=== PATIENT | female | born 1935 | race Caucasian/White ===

== ENCOUNTER 2025-01-28 14:42 | Outpatient (OUT) | payer MEDICARE, MEDICAID, SELFPAY ==
--- OUTSIDE RECORDS SUMMARY | 2025-01-28 14:45 | XMS_ITS | Clinical Summary ---
Author Organization [facility] Address [address] [place] [address] Care Team Providers Care Small Animal Caretaker Name Role Phone Gorge Lu MD Primary Care Provider [phone] Marcella Harrington RN Unavailable [phone] Allergies No known active allergies Medications aspirin (ASPIR) 81 MG EC tablet Take 1 tablet by mouth 1 (one) time each day. Active denosumab (Prolia) 60 MG/ML solution prefilled syringe Inject 60 mg under the skin. Every 6 months Active latanoprost (Xalatan) 0.005 % ophthalmic solution INSTILL 1 DROP INTO BOTH EYES EVERY EVENING DIRECTED 3 Active ferrous sulfate 325 (65 Fe) MG tabletIndication s:Muscle weakness Take 1 tablet (325 mg) by mouth in the morning and 1 tablet (325 mg) in the evening. Take with meals. 90 tablet 2 4 Active glipiZIDE (Glucotrol) 5 MG tabletIndication s:Type 2 diabetes mellitus without complication, without long-term current use of insulin (HCC) TAKE 1 TABLET (5 MG) BY MOUTH IN THE MORNING AND 1 TABLET (5 MG) IN THE EVENING. TAKE BEFORE MEALS. 180 tablet 3 5 Active FLUoxetine (PROzac) 20 MG capsuleIndicatio ns:Decreased estrogen level TAKE 1 CAPSULE (20 MG) BY MOUTH IN THE MORNING 90 capsule 4 5 Active dapagliflozin (Farxiga) 5 MGIndications:Ty pe 2 diabetes mellitus with chronic kidney disease, without long-term current use of insulin, unspecified CKD stage (HCC) Take 1 tablet (5 mg) by mouth Daily 30 tablet 11 5 026 Active Misc. Devices (Rollator Ultra-Light) miscIndications: Atrophy of muscle of multiple sites,Frailty,At axia 1 Units continuously 1 each 5 Active amLODIPine (Norvasc) 5 MG tabletIndication s:Essential hypertension TAKE 1 TABLET BY MOUTH EVERY DAY 100 tablet 3 5 Active hydrALAZINE (Apresoline) 25 MG tabletIndication s:Essential hypertension Take 1 tablet (25 mg) by mouth in the morning and 1 tablet (25 mg) in the evening and 1 tablet (25 mg) before bedtime. 270 tablet 3 5 Active Alcohol Swabs 70 % padsIndications: Type 2 diabetes mellitus with chronic kidney disease, without long-term current use of insulin, unspecified CKD stage (HCC) 1 Pad Daily To cleanse finger prior to finger stick to check blood sugar 100 each 3 5 026 Active furosemide (Lasix) 20 MG tabletIndication s:Chronic diastolic congestive heart failure (HCC) TAKE 1 TABLET (20 MG) BY MOUTH EVERY DAY NEEDED FOR EDEMA 90 tablet 1 5 Active Blood Glucose Monitoring Suppl (Blood Glucose Monitor System) w/Device kitIndications:T ype 2 diabetes mellitus with chronic kidney disease, without long-term current use of insulin, unspecified CKD stage (HCC) Use daily or as directed for monitoring of diabetes. Glucometer covered by insurance 1 kit 5 026 Active Glucose Blood (Blood Glucose Test Strips 333) stripIndications :Type 2 diabetes mellitus with chronic kidney disease, without long-term current use of insulin, unspecified CKD stage (HCC) 1 strip by In Vitro route Daily Test strips that insurance will cover 100 strip 3 5 026 Active Active Problems Problem Noted Date Diagnosed Date Iron deficiency anemia secon hailey to inadequate dietary iron intake 09/11/2023 Moderate protein-calorie malnutrition (HHS-HCC) 03/29/2023 Atrophy of muscle of multiple sites 03/29/2023 Muscle weakness 03/29/2023 Body mass index (BMI) 19.9 or less, adult 2022 Chronic systolic congestive heart failure 2022 Decreased estrogen level 12/13/2022 Essential hypertension 12/13/2022 Irregular heart rhythm 12/13/2022 Frailty 12/13/2022 Left atrial enlargement 12/13/2022 Nonrheumatic mitral valve regurgitation 12/14/19 23 Osteoporosis 12/13/2022 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/2022 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 12/13/2022 Resolved Problems Problem Noted Date Diagnosed Date Resolved Date Pneumonia of both lungs due to infectious organism 08/16/2023 01/18/2024 Encounters Date Type Department Care Team Description 01/08/2025 Patient Outreach [facility] [address] [place] [address] Marcella Harrington, ALEXEY 01/03/2025 Telephone [address] [address] [place] [address] Gorge Lu MD 12/31/2024 3:00 PM EDT Procedure Visit [facility] [address] [place] [address] Shemar Saucedo DPM Onychomycosis (Primary Dx); Onychodystrophy; Diabetic polyneuropathy associated with type 2 diabetes mellitus (HCC); Ulcer of right foot with fat layer exposed (HCC); Ulcer of left foot with fat layer exposed (HCC) 12/31/2024 Bamboo flowsheet [facility] [address] [place] [address] Shemar Saucedo DPM 12/31/2024 Travel 12/30/2024 Travel 12/12/2024 Refill [facility] [address] [place] [address] Gorge Lu MD Type 2 diabetes mellitus with chronic kidney disease, without long-term current use of insulin, unspecified CKD stage (HCC) 12/06/2024 Patient Outreach [facility] [address] [place] [address] Marcella Harrington RN 11/07/2024 Patient Outreach [facility] [address] [place] [address] Marcella Harrington RN 11/05/2024 Refill [facility] [place] [facility] [address] [facility] [address] [place] [address] Gorge Lu MD Chronic diastolic congestive heart failure (HCC) 11/04/2024 4:00 PM EDT Office Visit [facility] [place] [facility] 112 [facility] [address] [place] [id number] Gorge Lu MD Age-related osteoporosis without current pathological fracture (Primary Dx); Chronic systolic congestive heart failure (HCC) 11/04/2024 Bamboo flowsheet [facility] [place] [facility] [address] [facility] [address] [place] [address] Gorge Lu MD 11/04/2024 Travel from Last 3 Months Immunizations Immunization Administration Dates Next Due Influenza, High Dose Seasona l, Preservative Free 03/06/2019,03/29/2018,03/14/2018,02/22 Influenza, injectable, quadrivalent 03/01/2016 Influenza, injectable, quadr ivalent, preservative free 02/27/2023,02/28/2022,03/01/2021,02/25,04/03/2015 Influenza, seasonal, injecta ble, preservative free 03/04/2024,04/30/2014 Influenza, seasonal, intrade rmal, preservative free 02/26/2013 Pneumococcal Polysaccharide PPSV23 02/26/2013 Pneumococcal conjugate vacci ne, 21 valent (PCV21), polysaccharide ERX181 conjugate, preservative free 10/09/2024 Pneumococcal, Unspecified 10/16/2024 Tdap 10/09/2024 Zoster, Recombinant 10/09/2024 Family History Medical History Relation Name Comments Heart disease Father Hypertension Father Ovarian cancer Mother Relation Name Status Comments Father Mother Social History Tobacco Use Types Packs/Day Years Used Date Smoking Tobacco: Never Smokeless Tobacco: Never Tobacco Cessation:Counseling Given: Not Answered Alcohol Use Standard Drinks/Week Comments Never 0 (1 standard drink = 0.6 oz pur e alcohol) B1300 Health Literacy Answer Date Recor ded How often do you need to hav e someone help you when you read instructions, pamphlets, or other written material from your doctor or pharmacy? Never 09/09/2024 Humiliation, Afraid, Rape, and Kick questionnair e Answer Date Recorded Within the last year, have y ou been afraid of your partner or ex-partner? No 09/09/2024 Within the last year, have y ou been humiliated or emotionally abused in other ways by your partner or ex-partner? No Within the last year, have y ou been kicked, hit, slapped, or otherwise physically hurt by your partner or ex-partner? No 09/09/2024 Within the last year, have y ou been raped or forced to have any kind of sexual activity by your partner or ex-partner? No 09/09/2024 Social Connection and Isolation Panel [NHANES] A nswer Date Recorded In a typical week, how many times do you talk on the phone with family, friends, or neighbors? Once a week 09/09/2024 How often do you get togethe r with friends or relatives? Three times a week 09/09/2024 How often do you attend chur ch or uatsdin services? Never 09/09/2024 Do you belong to any clubs o r organizations such as hoahaoism groups, unions, fraternal or athletic groups, or school groups? No 09/09/2024 How often do you attend meet ings of the clubs or organizations you belong to? Never 09/09/2024 Are you , , di vorced, , never , or living with a partner? 09/09/2024 AUDIT-C Answer Date Recorded Q1: How often do you have a drink containing alcohol? Never 09/09/2024 Q2: How many drinks containi ng alcohol do you have on a typical day when you are drinking? Patient does not drink Q3: How often do you have si x or more drinks on one occasion? Never 09/09/2024 Overall Financial Resource Strain (CARDIA) Answe r Date Recorded How hard is it for you to pa y for the very basics like food, housing, medical care, and heating? Not hard at all 09/09/2024 PHQ-2 Answer Date Recorded Patient Health Questionnaire-2 Score 0 08/19/2024 [place] [facility] - Occupational Stress Questionnaire Answer Date Recorded Do you feel stress - tense, restless, nervous, or anxious, or unable to sleep at night because your mind is troubled all the time - these days? Not at all 09/09/2024 Exercise Vital Sign Answer Date Recorde d On average, how many days pe r week do you engage in moderate to strenuous exercise (like a brisk walk)? 0 days 09/09/2024 On average, how many minutes do you engage in exercise at this level? 0 min 09/09/2024 Hunger Vital Sign Answer Date Recorded Within the past 12 months, y ou worried that your food would run out before you got the money to buy more. Never true 09/10/19 25 Within the past 12 months, t he food you bought just didn't last and you didn't have money to get more. Never true 09/09/2024 PRAPARE - Transportation Answer Date Re corded In the past 12 months, has l ack of transportation kept you from medical appointments or from getting medications? No 08/27 In the past 12 months, has l ack of transportation kept you from meetings, work, or from getting things needed for daily living? No 09/09/2024 Housing Stability Vital Sign Answer Mahendra e Recorded In the last 12 months, was t here a time when you were not able to pay the mortgage or rent on time? No 08/23/2023 In the last 12 months, how many places have you lived? 1 08/23/2023 In the last 12 months, was t here a time when you did not have a steady place to sleep or slept in a skilled nursing (including now)? No 08/23/2023 Housing Stability Vital Sign Answer Mahendra e Recorded In the last 12 months, was t here a time when you were not able to pay the mortgage or rent on time? No 09/09/2024 In the past 12 months, how m any times have you moved where you were living? 0 09/09/2024 At any time in the past 12 m [facility], were you homeless or living in a skilled nursing (including now)? No 09/09/2024 Comments Unknown Sex and Gender Information Value Date Recorded Sex Assigned at Not on file Legal Sex Female 7:22 PM EDT Gender Identity Not on file Sexual Orientation Not on file Last Filed Vital Signs Vital Sign Reading Time Taken Comments Blood Pressure 128/62 11/04/2024 4:02 PM EDT Pulse 66 11/04/2024 4:02 PM EDT Temperature 36.4 C (97.5 F) 11/13/2023 3:05 PM EDT Respiratory Rate 16 11/04/2024 4:02 PM EDT Oxygen Saturation 96% 11/04/2024 4:02 PM EDT Inhaled Oxygen Concentration - - Weight 52.2 kg (115 lb) 12/31/2024 2:59 PM EDT Height 170.2 cm (5' 7 ) 12/31/2024 2:59 PM EDT Body Mass Index 18.01 12/31/2024 2:59 PM EDT Plan of Treatment Upcoming Encounters Date Type Department Care Team (Late st Contact Info) Description 02/17/2025 2:30 PM EDT Office Visit [facility] [address] [facility] [address] [place] [address] Gorge Lu MD 112 [facility] 110 [place] [address] 05/05/2025 3:15 PM EST Procedure Visit [facility] [address] [place] [phone] Shemar Saucedo, DPAshley [address] [place], [place] [id number] Health Maintenance Due Date Last Done Comments Diabetes: Urine Protein Screening 08/21/2018 018 Diabetes: Hemoglobin A1C 01/14/2025 025, 08/19/2024, 07/08/2024, Additional history exists Influenza Vaccine (#1) 2025 4, 02/27/2023, 02/28/2022, Additional history exists Diabetes: Retinopathy Screening 05/30/2025 4, 06/13/2017 Pneumococcal Vaccine: 65+ Ye ars (2 of 2 - PCV) 10/16/2025 10/16/2024, 02/26/2013 Procedures Procedure Name Priority Date/Time Associated Diagnosis Comments POCT GLYCATED HEMOGLOBIN, TOTAL Routine 10/14/2024 3:52 PM EDT Type 2 diabetes mellitus with chronic kidney disease, without long-term current use of insulin, unspecified CKD stage (HCC) DIABETIC RETINOPATHY SCREENING - OU - BOTH EYES Routine 05/30/2023 2:24 PM EST MICROALBUMIN / CREATININE URINE RATIO Routine 08/21/2017 from Last 3 Months or Most Recently Relevant to Health Maintenance Results * POCT Glycated hemoglobin, total (10/14/2024 3:52 PM EDT) Hemoglobin A1C 7.8 Blood 10/14/2024 3:52 PM EDT us Gorge Lu MD POINT OF CARE TEST ENTER/EDIT ORDERABLES Final Result * Diabetic Retinopathy Screening - OU - Both Eyes (05/30/2023 2:24 PM EST) Anatomical Region Laterality Modality Head Other us Gorge Lu MD OPHTH PHOTOGRAPHY Final Result * (ABNORMAL) Microalbumin / creatinine urine ratio (08/21/2017) 2176 143 20 - 320 [facility] 3779 5.4 NOT ESTABLISHED [facility] 4064 37.8(H) 0.0 - 29.9 [facility] Comment: THE ADA (DIABETES CARE 26:S94-S98, 2003) DEFINES ABNORMALITIES IN ALBUMIN EXCRETION FOLLOWS: CATEGORY RESULT (MCG/MG CREATININE) -------- NORMAL <30 MICROALBUMINURIA 30 - 299 CLINICAL ALBUMINURIA > OR = 300 THE ADA RECOMMENDS THAT AT LEAST TWO OF THREE SPECIMENS COLLECTED WITHIN A 3-6 MONTH PERIOD BE ABNORMAL BEFORE CONSIDERING A PATIENT TO BE WITHIN A DIAGNOSTICS CATEGORY. 08/21/2017 us Gorge Lu MD LAB URINE ORDERABLES Final Res ult [facility] from Last 3 Months or Most Recently Relevant to Health Maintenance [place] [employer] MEDIC[place]VANTAGE Care Teams Small Animal Caretaker Relationship Specialty Start Date End Date Gorge Lu MD [address] [place] [address] [place] [address] PCP - General Internal Medicine 12/14/22 Marcella Harrington, ALEXEY [address] [place] [address] [place] [address] Registered Nurse Family Medicine 08/23/23
--- OUTSIDE RECORDS SUMMARY | 2025-01-28 14:45 | XMS_ITS | Encounter Summary ---
Author Organization [facility] Address [address] [facility] [place] [address] Care Team Providers Care Mild Disabilities Teacher Name Role Phone Gorge Lu MD Primary Care Provider [phone] Marcella Harrington RN Unavailable [phone] Gorge Lu MD Unavailable [phone] Gorge Lu MD Unavailable [phone] Encounter Details Date Type Department Care Team ([facility] st Contact Info) Description 09/12/2023 Abstract [facility] [place] [facility] [address] [facility] 110 [place] [phone] Gorge Lu MD 112 [facility] 110 [place] [address] Social History Tobacco Use Types Packs/Day Years Used Date Smoking Tobacco: Never Smokeless Tobacco: Never Alcohol Use Standard Drinks/Week Comments Never 0 (1 standard drink = 0.6 oz pur e alcohol) Humiliation, Afraid, Rape, and Kick questionnair e Answer Date Recorded Within the last year, have y ou been afraid of your partner or ex-partner? No 08/23/2023 Within the last year, have y ou been humiliated or emotionally abused in other ways by your partner or ex-partner? No Within the last year, have y ou been kicked, hit, slapped, or otherwise physically hurt by your partner or ex-partner? No 08/23/2023 Within the last year, have y ou been raped or forced to have any kind of sexual activity by your partner or ex-partner? No 08/23/2023 Social Connection and Isolat ion Panel [NHANES] Answer Date Recorded In a typical week, how many times do you talk on the phone with family, friends, or neighbors? More than three times a week 08/23/2023 How often do you get togethe r with friends or relatives? Three times a week 08/23/2023 How often do you attend chur ch or spiritism services? Never 08/23/2023 Do you belong to any clubs o r organizations such as gnosticism groups, unions, fraternal or athletic groups, or school groups? No 08/23/2023 How often do you attend meet ings of the clubs or organizations you belong to? Never 08/23/2023 Are you , , di vorced, , never , or living with a partner? 08/23/2023 AUDIT-C Answer Date Recorded Q1: How often do you have a drink containing alcohol? Never 08/23/2023 Q2: How many drinks containi ng alcohol do you have on a typical day when you are drinking? Patient does not drink Q3: How often do you have si x or more drinks on one occasion? Never 08/23/2023 Overall Financial Resource Strain (CARDIA) Answe r Date Recorded How hard is it for you to pa y for the very basics like food, housing, medical care, and heating? Not hard at all 08/23/2023 PHQ-2 Answer Date Recorded Patient Health Questionnaire-2 Score 0 01/09/2023 [facility] - Occupational Stress Questionnaire Answer Date Recorded Do you feel stress - tense, restless, nervous, or anxious, or unable to sleep at night because your mind is troubled all the time - these days? Not at all 08/23/2023 Exercise Vital Sign Answer Date Recorde d On average, how many days pe r week do you engage in moderate to strenuous exercise (like a brisk walk)? 0 days 08/23/2023 On average, how many minutes do you engage in exercise at this level? 0 min 08/23/2023 Hunger Vital Sign Answer Date Recorded Within the past 12 months, y ou worried that your food would run out before you got the money to buy more. Never true 08/23/19 24 Within the past 12 months, t he food you bought just didn't last and you didn't have money to get more. Never true 08/23/2023 PRAPARE - Transportation Answer Date Re corded In the past 12 months, has l ack of transportation kept you from medical appointments or from getting medications? No 07/28 In the past 12 months, has l ack of transportation kept you from meetings, work, or from getting things needed for daily living? No 08/23/2023 Housing Stability Vital Sign Answer [...] place to sleep or slept in a correction (including now)? No 08/23/2023 Comments Unknown Sex and Gender Information Value Date Recorded Sex Assigned at Not on file Legal Sex Female 7:22 PM EDT Gender Identity Not on file Sexual Orientation Not on file documented as of this encounter Plan of Treatment Upcoming Encounters Date Type Department Care Team (Late st Contact Info) Description 02/17/2025 2:30 PM EDT Office Visit [facility] Rodriguez [address] [facility] [address] [place] [address] Gorge Lu MD [address] [facility] [address] [place] [address] 05/05/2025 3:15 PM EST Procedure Visit [facility] [address] [place] [phone] Shemar Saucedo DPM [address] [place] [address] documented as of this encounter Visit Diagnoses Not on filedocumented in this encounter Additional Health Concerns Assessment Noted Time A fall risk assessment has been complete d for the patient 08/23/2023 10:31 AM EDT documented as of this encounter Care Teams Mild Disabilities Teacher Relationship Specialty Start Date End Date Gorge Lu MD [address] [facility] [address] [place] [address] PCP - General Internal Medicine 12/14/22 Gorge Lu MD [address] [place] [address] [place] [address] PCP - ACO Reach 09/27/23 07/04/24 Gorge Lu MD [address] [place] [address] [place] [address] PCP - ACO Reach 07/12/24 08/29/24 Marcella Harrington, RN [address] [facility] [address] [place] [address] Registered Nurse Family Medicine 08/23/23 documented as of this encounter
--- OUTSIDE RECORDS SUMMARY | 2025-01-28 14:45 | XMS_ITS | Encounter Summary ---
Author Organization [facility] Address [address] [facility] [place] [address] Care Team Providers Care Web Production Designer Name Role Phone Gorge Lu MD Primary Care Provider [phone] Marcella Harrington RN Unavailable [phone] Gorge Lu MD Unavailable [phone] Gorge Lu MD Unavailable [phone] Encounter Details Date Type Department Care Team ([facility] st Contact Info) Description 09/12/2023 Abstract [facility] [place] [facility] 112 [facility] 110 [place] [phone] Gorge Lu MD 112 [facility] 110 [place] [address] Social History Tobacco Use Types Packs/Day Years [...] often do you attend chur ch or restoration services? Never 08/23/2023 Do you belong to any clubs o r organizations such as temple groups, unions, fraternal or athletic groups, or [...] Recorded Patient Health Questionnaire-2 Score 0 01/09/2023 [facility] - Occupational Stress Questionnaire Answer Date Recorded [...] place to sleep or slept in a [place] health care facility (including now)? No 08/23/2023 Comments Unknown Sex [...] Office Visit [facility] Rodriguez [address] [facility] [address] [place] [address] Gorge Lu MD [address] [facility] [address] [place] [address] 05/05/2025 3:15 PM EST Procedure Visit [facility] [address] [place] [phone] Shemar Saucedo DPM [address] [place] [address] documented as of this encounter Visit Diagnoses Not on filedocumented in this encounter Additional Health Concerns Assessment Noted Time A fall risk assessment has been complete d for the patient 08/23/2023 10:31 AM EDT documented as of this encounter Care Teams Web Production Designer Relationship Specialty Start Date End Date Gorge Lu MD [address] [facility] [address] [place] [address] PCP - General Internal Medicine 12/14/22 Gorge Lu MD [address] [place] [address] [place] [address] PCP - ACO Reach 09/27/23 07/04/24 Gorge Lu MD [address] [place] [address] [place] [address] PCP - ACO Reach 07/12/24 08/29/24 Marcella Harrington, RN [address] [facility] [address] [place] [address] Registered Nurse Family Medicine 08/23/23 documented as of this encounter
--- OUTSIDE RECORDS SUMMARY | 2025-01-28 14:45 | XMS_ITS | Encounter Summary ---
Author Organization [facility] Address [address] [facility] [place] [address] Care Team Providers Care Drapery Cutter Machine Name Role Phone Gorge Lu MD Primary Care Provider [phone] Marcella Harrington RN Unavailable [phone] Gorge Lu MD Unavailable [phone] Gorge Lu MD Unavailable [phone] Encounter Details Date Type Department Care Team ([facility] st Contact Info) Description 09/01/2023 Abstract [facility] [place] [facility] [address] [facility] 110 [place] [address] Gorge Lu MD 112 [facility] 110 [place] [address] Social History Tobacco Use Types Packs/Day Years [...] often do you attend chur ch or hindu services? Never 08/23/2023 Do you belong to any clubs o r organizations such as presybeterian groups, unions, fraternal or athletic groups, or [...] Recorded Patient Health Questionnaire-2 Score 0 01/09/2023 [facility] - Occupational Stress Questionnaire Answer Date Recorded [...] place to sleep or slept in a alf (including now)? No 08/23/2023 Comments Unknown Sex [...] Office Visit BEBETO Rodriguez [address] [facility] 110 [place] [address] Gorge Lu MD [address] [facility] 110 [place] [address] 05/05/2025 3:15 PM EST Procedure Visit [facility] [address] [place] [address] Shemar Saucedo DPM [address] [place] [address] documented as of this encounter Visit Diagnoses Not on filedocumented in this encounter Additional Health Concerns Assessment Noted Time A fall risk assessment has been complete d for the patient 08/23/2023 10:31 AM EDT documented as of this encounter Care Teams Drapery Cutter Machine Relationship Specialty Start Date End Date Gorge Lu MD [address] [facility] [address] [place] [address] PCP - General Internal Medicine 12/14/22 Gorge Lu MD [address] [place] [address] [place] [address] PCP - ACO Reach 09/27/23 07/04/24 Gorge Lu MD [address] [place] [address] [place] [address] PCP - ACO Reach 07/12/24 08/29/24 Marcella Harrington, RN [address] [facility] 230 [place] [address] Registered Nurse Family Medicine 08/23/23 documented as of this encounter
--- OUTSIDE RECORDS SUMMARY | 2025-01-28 14:45 | XMS_ITS | Encounter Summary ---
Author Organization [facility] Address [address] [facility] [place] [address] Care Team Providers Care Equipment Maintenance Engineer Name Role Phone Gorge Lu MD Primary Care Provider [phone] Marcella Harrington RN Unavailable [phone] Gorge Lu MD Unavailable [phone] Gorge Lu MD Unavailable [phone] Encounter Details Date Type Department Care Team ([facility] st Contact Info) Description 09/22/2023 Abstract [facility] [place] [facility] 112 [facility] 110 [place] [address] Gorge Lu MD 112 [facility] 110 [place] [address] Social History Tobacco Use Types Packs/Day Years [...] often do you attend chur ch or buddhist services? Never 08/23/2023 Do you belong to any clubs o r organizations such as yazidi groups, unions, fraternal or athletic groups, or [...] Recorded Patient Health Questionnaire-2 Score 0 01/09/2023 [facility] - Occupational Stress Questionnaire Answer [...] place to sleep or slept in a group home (including now)? No 08/23/2023 Comments Unknown Sex [...] Office Visit BEBETO Rodriguez [address] [facility] 110 [place] [address] Gorge Lu MD [address] [facility] 110 [place] [address] 05/05/2025 3:15 PM EST Procedure Visit [facility] [address] [place] [address] Shemar Saucedo DPM [address] [place] [address] documented as of this encounter Visit Diagnoses Not on filedocumented in this encounter Additional Health Concerns Assessment Noted Time A fall risk assessment has been complete d for the patient 08/23/2023 10:31 AM EDT documented as of this encounter Care Teams Equipment Maintenance Engineer Relationship Specialty Start Date End Date Gorge Lu MD [address] [facility] [address] [place] [address] PCP - General Internal Medicine 12/14/22 Gorge Lu MD [address] [place] [address] [place] [address] PCP - ACO Reach 09/27/23 07/04/24 Gorge Lu MD [address] [place] [address] [place] [address] PCP - ACO Reach 07/12/24 08/29/24 Marcella Harrington, RN [address] [facility] 230 [place] [address] Registered Nurse Family Medicine 08/23/23 documented as of this encounter
--- OUTSIDE RECORDS SUMMARY | 2025-01-28 14:46 | XMS_ITS | Encounter Summary ---
Author Organization [facility] Address [address] [place] [facility] [place] [address] Care Team Providers Care Manager Of Software Name Role Phone Gorge Lu MD Primary Care Provider [phone] Gorge Lu MD Unavailable [phone] Marcella Harrington RN Unavailable [phone] Gorge Lu MD Unavailable [phone] Gorge Lu MD Unavailable [phone] Encounter Details Date Type Department Care Team (Late Contact Info) Description 01/29/2023 Abstract [facility] 1900 [place] [address] Ki Saucedo DPAshley 1900 [place], [place] [phone] Social History Tobacco Use Types Packs/Day Years Used Date Smoking Tobacco: Never Smokeless Tobacco: Never Alcohol Use Standard Drinks/Week Comments Never 0 (1 standard drink = 0.6 oz pur e alcohol) PHQ-2 Answer Date Recorded Patient Health Questionnaire-2 Score 0 01/09/2023 Comments Unknown Sex and Gender Information Value Date Recorded Sex Assigned at Not on file Legal Sex Female 7:22 PM EDT Gender Identity Not on file Sexual Orientation Not on file documented as of this encounter Plan of Treatment Upcoming Encounters Date Type Department Care Team ([facility] Contact Info) Description 02/17/2025 2:30 PM EDT Office Visit BEBETO Rodriguez [address] [place] [address] [place] [address] Gorge Lu MD [address] [facility] 110 [place], [place] [address] 05/05/2025 3:15 PM EST Procedure Visit [facility] [address] [place] [address] Shemar Saucedo, DPM [address] [place] [address] documented as of this encounter Visit Diagnoses Not on filedocumented in this encounter Care Teams Manager Of Software Relationship Specialty Start Date End Date Gorge Lu MD [address] [place] [address] [place] [address] PCP - General Internal Medicine 12/14/22 Gorge Lu MD [address] [place] [address] [place] [address] PCP - ACO Reach 11/07/22 07/27/23 Gorge Lu MD [address] [place] [address] [place] [address] PCP - ACO Reach 09/27/23 07/04/24 Gorge Lu MD [address] [place] [address] [place] [address] PCP - ACO Reach 07/12/24 08/29/24 Marcella Harrington, ALEXEY [address] [place] [address] [place] [address] Registered Nurse Family Medicine 08/23/23 documented as of this encounter
--- OUTSIDE RECORDS SUMMARY | 2025-01-28 14:46 | XMS_ITS | Encounter Summary ---
Author Organization [facility] Address [address] [facility] [place] [address] Care Team Providers Care Stuffer Name Role Phone Gorge Lu MD Primary Care Provider [phone] Marcella Harrington RN Unavailable [phone] Gorge Lu MD Unavailable [phone] Gorge Lu MD Unavailable [phone] Encounter Details Date Type Department Care Team ([facility] st Contact Info) Description 09/20/[address] [place] [facility] 112 [facility] 110 [place] [address] Gorge Lu MD 112 [facility] 110 [place] [address] Social History Tobacco Use Types Packs/Day Years [...] often do you attend chur ch or bahai services? Never 08/23/2023 Do you belong to any clubs o r organizations such as rastafari groups, unions, fraternal or athletic groups, or [...] Recorded Patient Health Questionnaire-2 Score 0 01/09/2023 [facility] - Occupational Stress Questionnaire Answer Date Recorded [...] place to sleep or slept in a custodial (including now)? No 08/23/2023 Comments Unknown Sex [...] Office Visit BEBETO Rodriguez [address] [facility] [address] [place] [address] Gorge Lu MD [address] [facility] 110 [place] [address] 05/05/2025 3:15 PM EST Procedure Visit [facility] [address] [place] [address] Shemar Saucedo DPM [address] [place] [address] documented as of this encounter Visit Diagnoses Not on filedocumented in this encounter Additional Health Concerns Assessment Noted Time A fall risk assessment has been complete d for the patient 08/23/2023 10:31 AM EDT documented as of this encounter Care Teams Stuffer Relationship Specialty Start Date End Date Gorge Lu MD [address] [facility] 110 [place] [address] PCP - General Internal Medicine 12/14/22 Gorge Lu MD [address] [place] [address] [place] [address] PCP - ACO Reach 09/27/23 07/04/24 Gorge Lu MD [address] [place] [address] [place] [address] PCP - ACO Reach 07/12/24 08/29/24 Marcella Harrington, RN [address] [facility] 230 [place] [address] Registered Nurse Family Medicine 08/23/23 documented as of this encounter
--- OUTSIDE RECORDS SUMMARY | 2025-01-28 14:46 | XMS_ITS | Encounter Summary ---
Author Organization [facility] Address [address] [facility] [place] [address] Care Team Providers Care Hospital Personnel Director Name Role Phone Gorge Lu MD Primary Care Provider [phone] Marcella Harrington RN Unavailable [phone] Gorge Lu MD Unavailable [phone] Gorge Lu MD Unavailable [phone] Encounter Details Date Type Department Care Team ([facility] st Contact Info) Description 10/18/2023 Abstract [facility] [place] [facility] 112 [facility] 110 [place] [address] Gorge Lu MD 112 [facility] 110 [place] [address] Social History Tobacco Use Types Packs/Day Years [...] often do you attend chur ch or religion services? Never 08/23/2023 Do you belong to any clubs o r organizations such as samaritan groups, unions, fraternal or athletic groups, or [...] Recorded Patient Health Questionnaire-2 Score 0 01/09/2023 [facility] - Occupational Stress Questionnaire Answer Date [...] place to sleep or slept in a retirement (including now)? No 08/23/2023 Comments Unknown Sex [...] Office Visit BEBETO Rodriguez [address] [facility] 110 [place] [address] Gorge Lu MD [address] [facility] 110 [place] [address] 05/05/2025 3:15 PM EST Procedure Visit [facility] [address] [place] [address] Shemar Saucedo DPM [address] [place] [address] documented as of this encounter Visit Diagnoses Not on filedocumented in this encounter Additional Health Concerns Assessment Noted Time A fall risk assessment has been complete d for the patient 08/23/2023 10:31 AM EDT documented as of this encounter Care Teams Hospital Personnel Director Relationship Specialty Start Date End Date Gorge Lu MD [address] [facility] 110 [place] [address] PCP - General Internal Medicine 12/14/22 Gorge Lu MD [address] [place] [address] [place] [address] PCP - ACO Reach 09/27/23 07/04/24 Gorge Lu MD [address] [place] [address] [place] [address] PCP - ACO Reach 07/12/24 08/29/24 Marcella Harrington, RN [address] [facility] 230 [place] [address] Registered Nurse Family Medicine 08/23/23 documented as of this encounter
--- OUTSIDE RECORDS SUMMARY | 2025-01-28 14:46 | XMS_ITS | Encounter Summary ---
Author Organization [facility] Address [address] [facility] [place] [address] Care Team Providers Care Stock Roller Name Role Phone Gorge Lu MD Primary Care Provider [phone] Marcella Harrington RN Unavailable [phone] Gorge Lu MD Unavailable [phone] Gorge Lu MD Unavailable [phone] Encounter Details Date Type Department Care Team ([facility] st Contact Info) Description 02/01/2024 Abstract [facility] [place] [facility] 112 [facility] 110 [place] [address] Gorge Lu MD 112 [facility] 110 [place] [address] Social History Tobacco Use Types Packs/Day Years [...] often do you attend chur ch or christian services? Never 08/23/2023 Do you belong to any clubs o r organizations such as tenriism groups, unions, fraternal or athletic groups, or [...] Recorded Patient Health Questionnaire-2 Score 0 01/09/2023 [facility] - Occupational Stress Questionnaire Answer Date [...] place to sleep or slept in a penitentiary (including now)? No 08/23/2023 Comments Unknown Sex [...] Office Visit BEBETO Rodriguez [address] [facility] 110 [place] [address] Gorge Lu MD [address] [facility] 110 [place] [address] 05/05/2025 3:15 PM EST Procedure Visit [facility] [address] [place] [address] Shemar Saucedo DPM [address] [place] [address] documented as of this encounter Visit Diagnoses Not on filedocumented in this encounter Additional Health Concerns Assessment Noted Time A fall risk assessment has been complete d for the patient 08/23/2023 10:31 AM EDT documented as of this encounter Care Teams Stock Roller Relationship Specialty Start Date End Date Gorge Lu MD [address] [facility] 110 [place] [address] PCP - General Internal Medicine 12/14/22 Gorge Lu MD [address] [place] [address] [place] [address] PCP - ACO Reach 09/27/23 07/04/24 Gorge Lu MD [address] [place] [address] [place] [address] PCP - ACO Reach 07/12/24 08/29/24 Marcella Harrington, RN [address] [facility] 230 [place] [address] Registered Nurse Family Medicine 08/23/23 documented as of this encounter
--- OUTSIDE RECORDS SUMMARY | 2025-01-28 14:46 | XMS_ITS | Encounter Summary ---
Author Organization [facility] Address [address] [facility] [place] [address] Care Team Providers Care Corrections Lieutenant Name Role Phone Gorge Lu MD Primary Care Provider [phone] Marcella Harrington RN Unavailable [phone] Encounter Details Date Type Department Care Team ([facility] Contact Info) Description 10/22/2024 Abstract [facility] [place] [facility] [address] [facility] 110 [place] [address] Gorge Lu MD [address] [facility] 110 [place], [place] [address] Social History Tobacco Use Types Packs/Day Years [...] often do you attend chur ch or sikh services? Never 09/09/2024 Do you belong to any clubs o r organizations such as pentecostal groups, unions, fraternal or athletic groups, or [...] Recorded Patient Health Questionnaire-2 Score 0 08/19/2024 [facility] - Occupational Stress [...] place to sleep or slept in a assisted (including now)? No 08/23/2023 Housing Stability Vital Sign Answer Mahendra e Recorded In the last 12 months, was t here a time when you were not able to pay the mortgage or rent on time? No 09/09/2024 In the past 12 months, how m any times have you moved where you were living? 0 09/09/2024 At any time in the past 12 m [facility], were you homeless or living in a assisted (including now)? No 09/09/2024 Comments Unknown Sex and Gender Information Value Date Recorded Sex Assigned at Not on file Legal Sex Female 7:22 PM EDT Gender Identity Not on file Sexual Orientation Not on file documented as of this encounter Plan of Treatment Upcoming Encounters Date Type Department Care Team (Late st Contact Info) Description 02/17/2025 2:30 PM EDT Office Visit [facility] 112 [facility] 110 [place] [address] Gorge Lu MD 112 [facility] 110 [place], [place] [address] 05/05/2025 3:15 PM EST Procedure Visit [facility] [address] [place] [address] Shemar Saucedo, DPM [address] [place] [address] documented as of this encounter Visit Diagnoses Not on filedocumented in this encounter Additional Health Concerns Assessment Noted Time A fall risk assessment has been complete d for the patient 08/23/2023 10:31 AM EDT documented as of this encounter Care Teams Corrections Lieutenant Relationship Specialty Start Date End Date Gorge Lu MD [address] [place] [address] [place] [address] PCP - General Internal Medicine 12/14/22 Marcella Harrington, ALEXEY [address] [place] [address] [place] [address] Registered Nurse Family Medicine 08/23/23 documented as of this encounter
--- OUTSIDE RECORDS SUMMARY | 2025-01-28 14:46 | XMS_ITS | Encounter Summary ---
Author Organization [facility] Address [address] [facility] [place] [address] Care Team Providers Care Bed And Breakfast Innkeeper Name Role Phone Gorge Lu MD Primary Care Provider [phone] Gorge Lu MD Unavailable [phone] Marcella Harrington RN Unavailable [phone] Gorge Lu MD Unavailable [phone] Gorge Lu MD Unavailable [phone] Encounter Details Date Type Department Care Team (Late Contact Info) Description 12/29/2022 Abstract NOM[facility]rian Rodriguez [address] [facility] 110 [place] [address] Gorge Lu MD [address] [facility] 110 [place], [place] [address] Social History Tobacco Use Types Packs/Day Years Used Date Smoking Tobacco: Never Smokeless Tobacco: Never Alcohol Use Standard Drinks/Week Comments Not Currently 0 (1 standard drink = 0.6 oz pur e alcohol) Comments Unknown Sex and Gender Information Value Date Recorded Sex Assigned at Not on file Legal Sex Female 7:22 PM EDT Gender Identity Not on file Sexual Orientation Not on file documented as of this encounter Plan of Treatment Upcoming Encounters Date Type Department Care Team ([facility] Contact Info) Description 02/17/2025 2:30 PM EDT Office Visit BEBETO Rodriguez [address] [facility] 110 [place] [address] Gorge Lu MD [address] [facility] 110 [place], [place] [address] 05/05/2025 3:15 PM EST Procedure Visit [facility] [address] [place] [address] Shemar Saucedo, DPM [address] [place] [address] documented as of this encounter Visit Diagnoses Not on filedocumented in this encounter Care Teams Bed And Breakfast Innkeeper Relationship Specialty Start Date End Date Gorge Lu MD [address] [place] [address] [place] [address] PCP - General Internal Medicine 12/14/22 Gorge Lu MD [address] [place] [address] [place] [address] PCP - ACO Reach 11/07/22 07/27/23 Gorge Lu MD [address] [place] [address] [place] [address] PCP - ACO Reach 09/27/23 07/04/24 Gorge Lu MD [address] [place] [address] [place] [address] PCP - ACO Reach 07/12/24 08/29/24 Marcella Harrington, RN [address] [facility] 230 [place] [address] Registered Nurse Family Medicine 08/23/23 documented as of this encounter
--- OUTSIDE RECORDS SUMMARY | 2025-01-28 14:46 | XMS_ITS | Encounter Summary ---
Author Organization [facility] Address [address] [place] [address] Care Team Providers Care Process Consultant Name Role Phone Gorge Lu MD Primary Care Provider [phone] Marcella Harrington RN Unavailable [phone] Gorge Lu MD Unavailable [phone] Gorge Lu MD Unavailable [phone] Encounter Details Date Type Department Care Team ([facility] st Contact Info) Description 10/18/2023 Abstract [facility] [place] [facility] 112 [facility] 110 [place] [address] Gorge Lu MD 112 [facility] 110 [place] [address] Social History Tobacco Use Types Packs/Day Years [...] often do you attend chur ch or orthodoxy services? Never 08/23/2023 Do you belong to any clubs o r organizations such as mandaeism groups, unions, fraternal or athletic groups, or [...] Recorded Patient Health Questionnaire-2 Score 0 01/09/2023 [facility] - Occupational Stress Questionnaire Answer Date Recorded [...] place to sleep or slept in a fpc (including now)? No 08/23/2023 Comments Unknown Sex [...] Office Visit BEBETO Rodriguez [address] [facility] 110 [place] [address] Gorge Lu MD [address] [facility] 110 [place] [address] 05/05/2025 3:15 PM EST Procedure Visit [facility] [address] [place] [address] Shemar Saucedo DPM [address] [place] [address] documented as of this encounter Visit Diagnoses Not on filedocumented in this encounter Additional Health Concerns Assessment Noted Time A fall risk assessment has been complete d for the patient 08/23/2023 10:31 AM EDT documented as of this encounter Care Teams Process Consultant Relationship Specialty Start Date End Date Gorge Lu MD [address] [facility] 110 [place] [address] PCP - General Internal Medicine 12/14/22 Gorge Lu MD [address] [place] [address] [place] [address] PCP - ACO Reach 09/27/23 07/04/24 Gorge Lu MD [address] [place] [address] [place] [address] PCP - ACO Reach 07/12/24 08/29/24 Marcella Harrington, RN [address] [facility] 230 [place] [address] Registered Nurse Family Medicine 08/23/23 documented as of this encounter
--- OUTSIDE RECORDS SUMMARY | 2025-01-28 14:46 | XMS_ITS | Encounter Summary ---
Author Organization [facility] Address [address] [facility] [place] [address] Care Team Providers Care Vein Access Technician Name Role Phone Gorge Lu MD Primary Care Provider [phone] Marcella Harrington RN Unavailable [phone] Gorge Lu MD Unavailable [phone] Gorge Lu MD Unavailable [phone] Encounter Details Date Type Department Care Team ([facility] st Contact Info) Description 09/12/2023 Abstract [facility] [place] [facility] 112 [facility] 110 [place] [address] Gorge Lu MD 112 [facility] 110 [place] [address] Social History Tobacco Use Types Packs/Day Years [...] often do you attend chur ch or temple services? Never 08/23/2023 Do you belong to any clubs o r organizations such as scientologist groups, unions, fraternal or athletic groups, or [...] Recorded Patient Health Questionnaire-2 Score 0 01/09/2023 [facility] - Occupational Stress Questionnaire Answer Date Recorded [...] Office Visit BEBETO Rodriguez [address] [facility] 110 [place] [address] Gorge Lu MD [address] [facility] 110 [place] [address] 05/05/2025 3:15 PM EST Procedure Visit [facility] [address] [place] [address] Shemar Saucedo DPM [address] [place] [address] documented as of this encounter Visit Diagnoses Not on filedocumented in this encounter Additional Health Concerns Assessment Noted Time A fall risk assessment has been complete d for the patient 08/23/2023 10:31 AM EDT documented as of this encounter Care Teams Vein Access Technician Relationship Specialty Start Date End Date Gorge Lu MD [address] [facility] [address] [place] [address] PCP - General Internal Medicine 12/14/22 Gorge Lu MD [address] [place] [address] [place] [address] PCP - ACO Reach 09/27/23 07/04/24 Gorge Lu MD [address] [place] [address] [place] [address] PCP - ACO Reach 07/12/24 08/29/24 Marcella Harrington, RN [address] [facility] 230 [place] [address] Registered Nurse Family Medicine 08/23/23 documented as of this encounter
--- OUTSIDE RECORDS SUMMARY | 2025-01-28 14:46 | XMS_ITS | Encounter Summary ---
Author Organization [facility] Address [address] [place] [place] [address] Care Team Providers Care Produce Field Merchandiser Name Role Phone Gorge Lu MD Primary Care Provider [phone] Marcella Harrington RN Unavailable [phone] Gorge Lu MD Unavailable [phone] Gorge Lu MD Unavailable [phone] Encounter Details Date Type Department Care Team ([facility] st Contact Info) Description 04/23/2024 Abstract [facility] [place] [facility] 112 [facility] 110 [place] [phone] Gorge Lu MD 112 [facility] 110 [place] [address] Social History Tobacco Use Types Packs/Day Years [...] often do you attend chur ch or mosque services? Never 08/23/2023 Do you belong to any clubs o r organizations such as jewish groups, unions, fraternal or athletic groups, or [...] Recorded Patient Health Questionnaire-2 Score 0 01/09/2023 [facility] - Occupational Stress Questionnaire Answer [...] Office Visit BEBETO Rodriguez [address] [facility] 110 [place] [address] Gorge Lu MD [address] [facility] 110 [place] [address] 05/05/2025 3:15 PM EST Procedure Visit [facility] [address] [place] [address] Shemar Saucedo DPM [address] [place] [address] documented as of this encounter Visit Diagnoses Not on filedocumented in this encounter Additional Health Concerns Assessment Noted Time A fall risk assessment has been complete d for the patient 08/23/2023 10:31 AM EDT documented as of this encounter Care Teams Produce Field Merchandiser Relationship Specialty Start Date End Date Gorge Lu MD [address] [facility] [address] [place] [address] PCP - General Internal Medicine 12/14/22 Gorge Lu MD [address] [place] [address] [place] [address] PCP - ACO Reach 09/27/23 07/04/24 Gorge Lu MD [address] [place] [address] [place] [address] PCP - ACO Reach 07/12/24 08/29/24 Marcella Harrington, RN [address] [facility] 230 [place] [address] Registered Nurse Family Medicine 08/23/23 documented as of this encounter
--- OUTSIDE RECORDS SUMMARY | 2025-01-28 14:46 | XMS_ITS ---
Author Organization [facility] Address [address] [place] [address] Care Team Providers Care Pie Cutter Name Role Phone Gorge Lu MD Primary Care Provider [phone] Marcella Harrington RN Unavailable [phone] Chronic Care Management (CCM) Status:Enrolled (Active) Start date:08/23/2023 Enrollment date:08/23/2023 Overview Please assess for Care Management needs. 08/23/23, 11:04 AM - Marcella Harrington RN- Patient gives verbal consent to be enrolled in CCM Program and understands there could be a bill for this service. CCM Bill No <September 21, 2023, 15:15 - Marcella Harrington RN> in chart CCM Bill Yes, pt has medicaid no hardship form needed <October 30, 2023, 11:35 - Marcella Harrington RN> CCM Bill no Case Team Name Relationship Phone Marcella Harrington RN(Responsible Staff) Registere d Nurse [phone] Continued Care and Services Coordination
--- OUTSIDE RECORDS SUMMARY | 2025-01-28 14:46 | XMS_ITS | Encounter Summary ---
Author Organization [facility] Address [address] [facility] [address] Care Team Providers Care Marine Painter Name Role Phone Gorge Lu MD Primary Care Provider [phone] Marcella Harrington RN Unavailable [phone] Gorge Lu MD Unavailable [phone] Gorge Lu MD Unavailable [phone] Encounter Details Date Type Department Care Team ([facility] st Contact Info) Description 04/02/2024 Abstract [facility] [place] [facility] 112 [facility] 110 [place] [address] Gorge Lu MD 112 [facility] 110 [place] [address] Social History Tobacco Use Types Packs/Day Years [...] any clubs o r organizations such as yarsani groups, unions, fraternal or athletic groups, or [...] Recorded Patient Health Questionnaire-2 Score 0 01/09/2023 [facility] - Occupational Stress Questionnaire Answer Date [...] place to sleep or slept in a senior care (including now)? No 08/23/2023 Comments Unknown Sex [...] Office Visit BEBETO Rodriguez [address] [facility] 110 [place] [address] Gorge Lu MD [address] [facility] 110 [place] [address] 05/05/2025 3:15 PM EST Procedure Visit [facility] [address] [place] [address] Shemar Saucedo DPM [address] [place] [address] documented as of this encounter Visit Diagnoses Not on filedocumented in this encounter Additional Health Concerns Assessment Noted Time A fall risk assessment has been complete d for the patient 08/23/2023 10:31 AM EDT documented as of this encounter Care Teams Marine Painter Relationship Specialty Start Date End Date Gorge Lu MD [address] [facility] [address] [place] [address] PCP - General Internal Medicine 12/14/22 Gorge Lu MD [address] [place] [address] [place] [address] PCP - ACO Reach 09/27/23 07/04/24 Gorge Lu MD [address] [place] [address] [place] [address] PCP - ACO Reach 07/12/24 08/29/24 Marcella Harrington, RN [address] [facility] 230 [place] [address] Registered Nurse Family Medicine 08/23/23 documented as of this encounter
--- OUTSIDE RECORDS SUMMARY | 2025-01-28 14:46 | XMS_ITS | Encounter Summary ---
Author Organization [facility] Address [address] [facility] [place] [address] Care Team Providers Care Roll Slicing Machine Tender Name Role Phone Gorge Lu MD Primary Care Provider [phone] Marcella Harrington RN Unavailable [phone] Gorge Lu MD Unavailable [phone] Gorge Lu MD Unavailable [phone] Encounter Details Date Type Department Care Team ([facility] st Contact Info) Description 11/14/2023 Abstract [facility] [place] [facility] 112 [facility] 110 [place] [address] Gorge Lu MD 112 [facility] 110 [place] [address] Social History Tobacco Use Types Packs/Day Years [...] any clubs o r organizations such as bahai groups, unions, fraternal or athletic groups, or [...] Recorded Patient Health Questionnaire-2 Score 0 01/09/2023 [facility] - Occupational Stress Questionnaire Answer [...] Office Visit BEBETO Rodriguez [address] [facility] 110 [place] [address] Gorge Lu MD [address] [facility] 110 [place] [address] 05/05/2025 3:15 PM EST Procedure Visit [facility] [address] [place] [address] Shemar Saucedo DPM [address] [place] [address] documented as of this encounter Visit Diagnoses Not on filedocumented in this encounter Additional Health Concerns Assessment Noted Time A fall risk assessment has been complete d for the patient 08/23/2023 10:31 AM EDT documented as of this encounter Care Teams Roll Slicing Machine Tender Relationship Specialty Start Date End Date Gorge Lu MD [address] [facility] 110 [place] [address] PCP - General Internal Medicine 12/14/22 Gorge Lu MD [address] [place] [address] [place] [address] PCP - ACO Reach 09/27/23 07/04/24 Gorge Lu MD [address] [place] [address] [place] [address] PCP - ACO Reach 07/12/24 08/29/24 Marcella Harrington, RN [address] [facility] 230 [place] [address] Registered Nurse Family Medicine 08/23/23 documented as of this encounter
--- OUTSIDE RECORDS SUMMARY | 2025-01-28 14:46 | XMS_ITS | Encounter Summary ---
Author Organization [facility] Address [address] [place] [address] Care Team Providers Care Artist Mannequin Coloring Name Role Phone Gorge Lu MD Primary Care Provider [phone] Marcella Harrington RN Unavailable [phone] Gorge Lu MD Unavailable [phone] Encounter Details Date Type Department Care Team (Late st Contact Info) Description 08/20/2024 Abstract [facility] [place] [facility] [address] [facility] 110 [place] [address] Gorge Lu MD [address] [facility] 110 [place] [address] Social History Tobacco Use Types Packs/Day Years [...] often do you attend chur ch or nondenominational services? Never 08/23/2023 Do you belong to any clubs o r organizations such as yarsanism groups, unions, fraternal or athletic groups, or [...] Recorded Patient Health Questionnaire-2 Score 0 08/19/2024 [facility] - Occupational Stress [...] 02/17/2025 2:30 PM EDT Office Visit BEBETO [facility] [address] [facility] 110 [place] [address] Gorge Lu MD [address] [facility] 110 [place] [address] 05/05/2025 3:15 PM EST Procedure Visit [facility] [address] [place] [address] Shemar Saucedo DPAshley [address] [place] [address] documented as of this encounter Visit Diagnoses Not on filedocumented in this encounter Additional Health Concerns Assessment Noted Time A fall risk assessment has been complete d for the patient 08/23/2023 10:31 AM EDT documented as of this encounter Care Teams Artist Mannequin Coloring Relationship Specialty Start Date End Date Gorge Lu MD [address] [place] [address] [place] [address] PCP - General Internal Medicine 12/14/22 Gorge Lu MD [address] [facility] 110 [place] [address] PCP - ACO Reach 07/12/24 08/29/24 Marcella Harrington, RN [address] [facility] 230 [place] [address] Registered Nurse Family Medicine 08/23/23 documented as of this encounter
--- OUTSIDE RECORDS SUMMARY | 2025-01-28 14:46 | XMS_ITS | Encounter Summary ---
Author Organization [facility] Address [address] [place] [address] Care Team Providers Care Bung Sewer Name Role Phone Gorge Lu MD Primary Care Provider [phone] Marcella Harrington RN Unavailable [phone] Gorge Lu MD Unavailable [phone] Gorge Lu MD Unavailable [phone] Encounter Details Date Type Department Care Team ([facility] st Contact Info) Description 10/10/2023 Abstract [facility] [place] [facility] 112 [facility] 110 [place] [address] Gorge Lu MD 112 [facility] 110 [place] [address] Social History Tobacco Use Types Packs/Day Years [...] attend chur ch or uatsdin services? Never 08/23/2023 Do you belong to [...] Recorded Patient Health Questionnaire-2 Score 0 01/09/2023 [facility] - Occupational Stress Questionnaire Answer [...] place to sleep or slept in a mcc (including now)? No 08/23/2023 Comments Unknown Sex [...] Office Visit BEBETO Rodriguez [address] [facility] 110 [place] [address] Gorge Lu MD [address] [facility] [address] [place] [address] 05/05/2025 3:15 PM EST Procedure Visit [facility] [address] [place] [address] Shemar Saucedo DPM [address] [place] [address] documented as of this encounter Visit Diagnoses Not on filedocumented in this encounter Additional Health Concerns Assessment Noted Time A fall risk assessment has been complete d for the patient 08/23/2023 10:31 AM EDT documented as of this encounter Care Teams Bung Sewer Relationship Specialty Start Date End Date Gorge Lu MD [address] [facility] [address] [place] [address] PCP - General Internal Medicine 12/14/22 Gorge Lu MD [address] [place] [address] [place] [address] PCP - ACO Reach 09/27/23 07/04/24 Gorge Lu MD [address] [place] [address] [place] [address] PCP - ACO Reach 07/12/24 08/29/24 Marcella Harrington, RN [address] [facility] 230 [place] [address] Registered Nurse Family Medicine 08/23/23 documented as of this encounter
--- OUTSIDE RECORDS SUMMARY | 2025-01-28 14:46 | XMS_ITS | Encounter Summary ---
Author Organization [facility] Address [address] [facility] [place] [address] Care Team Providers Care Property Technician Name Role Phone Gorge Lu MD Primary Care Provider [phone] Marcella Harrington RN Unavailable [phone] Gorge Lu MD Unavailable [phone] Gorge Lu MD Unavailable [phone] Encounter Details Date Type Department Care Team ([facility] st Contact Info) Description 11/14/2023 Abstract [facility] 112 [facility] 110 [place] [address] Gorge Lu MD 112 [facility] 110 [place] [address] Social History Tobacco Use Types Packs/Day Years [...] often do you attend chur ch or jew services? Never 08/23/2023 Do you belong to any clubs o r organizations such as hinduism groups, unions, fraternal or athletic groups, or [...] Recorded Patient Health Questionnaire-2 Score 0 01/09/2023 [facility] - Occupational Stress Questionnaire Answer Date [...] Office Visit BEBETO Rodriguez [address] [facility] 110 [place] [address] Gorge Lu MD [address] [facility] 110 [place] [address] 05/05/2025 3:15 PM EST Procedure Visit [facility] [address] [place] [address] Shemar Saucedo DPM [address] [place] [address] documented as of this encounter Visit Diagnoses Not on filedocumented in this encounter Additional Health Concerns Assessment Noted Time A fall risk assessment has been complete d for the patient 08/23/2023 10:31 AM EDT documented as of this encounter Care Teams Property Technician Relationship Specialty Start Date End Date Gorge Lu MD [address] [facility] 110 [place] [address] PCP - General Internal Medicine 12/14/22 Gorge Lu MD [address] [place] [address] [place] [address] PCP - ACO Reach 09/27/23 07/04/24 Gorge Lu MD [address] [place] [address] [place] [address] PCP - ACO Reach 07/12/24 08/29/24 Marcella Harrington, RN [address] [facility] 230 [place] [address] Registered Nurse Family Medicine 08/23/23 documented as of this encounter
--- OUTSIDE RECORDS SUMMARY | 2025-01-28 14:46 | XMS_ITS | Encounter Summary ---
Author Organization [facility] Address [address] [place] [address] Care Team Providers Care Java Web Developer Name Role Phone Gorge Lu MD Primary Care Provider [phone] Marcella Harrington RN Unavailable [phone] Gorge Lu MD Unavailable [phone] Gorge Lu MD Unavailable [phone] Encounter Details Date Type Department Care Team ([facility] st Contact Info) Description 07/04/2024 Abstract [facility] [place] [facility] 112 [facility] 110 [place] [address] Gorge Lu MD 112 [facility] 110 [place] [address] Social History Tobacco Use Types Packs/Day Years [...] any clubs o r organizations such as alevism groups, unions, fraternal or athletic groups, or [...] Recorded Patient Health Questionnaire-2 Score 0 01/09/2023 [facility] - Occupational Stress Questionnaire Answer Date Recorded [...] Office Visit BEBETO Rodriguez [address] [facility] 110 [place] [address] Gorge Lu MD [address] [facility] 110 [place] [address] 05/05/2025 3:15 PM EST Procedure Visit [facility] [address] [place] [address] Shemar Saucedo DPM [address] [place] [address] documented as of this encounter Visit Diagnoses Not on filedocumented in this encounter Additional Health Concerns Assessment Noted Time A fall risk assessment has been complete d for the patient 08/23/2023 10:31 AM EDT documented as of this encounter Care Teams Java Web Developer Relationship Specialty Start Date End Date Gorge Lu MD [address] [facility] [address] [place] [address] PCP - General Internal Medicine 12/14/22 Gorge Lu MD [address] [place] [address] [place] [address] PCP - ACO Reach 09/27/23 07/04/24 Gorge Lu MD [address] [place] [address] [place] [address] PCP - ACO Reach 07/12/24 08/29/24 Marcella Harrington, RN [address] [facility] 230 [place] [address] Registered Nurse Family Medicine 08/23/23 documented as of this encounter
--- OUTSIDE RECORDS SUMMARY | 2025-01-28 14:46 | XMS_ITS | Encounter Summary ---
Author Organization [facility] Address [address] [place] [place] [address] Care Team Providers Care Greaser Operator Name Role Phone Gorge Lu MD Primary Care Provider [phone] Marcella Harrington RN Unavailable [phone] Gorge Lu MD Unavailable [phone] oGrge Lu MD Unavailable [phone] Encounter Details Date Type Department Care Team ([facility] st Contact Info) Description 10/12/2023 Abstract [facility] [place] [facility] [address] [facility] 110 [place] [address] Gorge Lu MD 112 [facility] 110 [place] [address] Social History Tobacco Use Types Packs/Day Years [...] often do you attend chur ch or christianity services? Never 08/23/2023 Do you belong to [...] Recorded Patient Health Questionnaire-2 Score 0 01/09/2023 [facility] - Occupational Stress Questionnaire Answer Date [...] WAY [facility] 110 [place] [address] Gorge Lu MD [address] [facility] 110 [place] [address] 05/05/2025 3:15 PM EST Procedure Visit [facility] [address] [place] [address] Shemar Saucedo DPM [address] [place] [address] documented as of this encounter Visit Diagnoses Not on filedocumented in this encounter Additional Health Concerns Assessment Noted Time A fall risk assessment has been complete d for the patient 08/23/2023 10:31 AM EDT documented as of this encounter Care Teams Greaser Operator Relationship Specialty Start Date End Date Gorge Lu MD [address] [facility] 110 [place] [address] PCP - General Internal Medicine 12/14/22 Gorge Lu MD [address] [place] [address] [place] [address] PCP - ACO Reach 09/27/23 07/04/24 Gorge Lu MD [address] [place] [address] [place] [address] PCP - ACO Reach 07/12/24 08/29/24 Marcella Harrington, RN [address] [facility] 230 [place] [address] Registered Nurse Family Medicine 08/23/23 documented as of this encounter
--- OUTSIDE RECORDS SUMMARY | 2025-01-28 14:46 | XMS_ITS | Encounter Summary ---
Author Organization [facility] Address [address] [facility] [place] [address] Care Team Providers Care Talent Acquisition Administrator Name Role Phone Gorge Lu MD Primary Care Provider [phone] Marcella Harrington RN Unavailable [phone] Gorge Lu MD Unavailable [phone] Gorge Lu MD Unavailable [phone] Encounter Details Date Type Department Care Team ([facility] st Contact Info) Description 11/13/2023 Abstract [facility] 112 [facility] [address] [place] [phone] Gorge Lu MD 112 [facility] 110 [place] [address] Social History Tobacco Use Types Packs/Day Years [...] Recorded Patient Health Questionnaire-2 Score 0 01/09/2023 [facility] - Occupational Stress Questionnaire [...] place to sleep or slept in a snf (including now)? No 08/23/2023 Comments Unknown Sex [...] Office Visit BEBETO Rodriguez [address] [facility] 110 [place] [address] Gorge Lu MD [address] [facility] 110 [place] [address] 05/05/2025 3:15 PM EST Procedure Visit [facility] [address] [place] [phone] Shemar Saucedo DPM [address] [place] [address] documented as of this encounter Visit Diagnoses Not on filedocumented in this encounter Additional Health Concerns Assessment Noted Time A fall risk assessment has been complete d for the patient 08/23/2023 10:31 AM EDT documented as of this encounter Care Teams Talent Acquisition Administrator Relationship Specialty Start Date End Date Gorge Lu MD [address] [facility] 110 [place] [address] PCP - General Internal Medicine 12/14/22 Gorge Lu MD [address] [place] [address] [place] [address] PCP - ACO Reach 09/27/23 07/04/24 Gorge Lu MD [address] [place] [address] [place] [address] PCP - ACO Reach 07/12/24 08/29/24 Marcella Harrington, RN [address] [facility] 230 [place] [address] Registered Nurse Family Medicine 08/23/23 documented as of this encounter
--- OUTSIDE RECORDS SUMMARY | 2025-01-28 14:46 | XMS_ITS | Encounter Summary ---
Author Organization [facility] Address [address] [facility] [place] [address] Care Team Providers Care Housing Court Judge Name Role Phone Gorge Lu MD Primary Care Provider [phone] Gorge Lu MD Unavailable [phone] Marcella Harrington RN Unavailable [phone] Gorge Lu MD Unavailable [phone] Gorge Lu MD Unavailable [phone] Encounter Details Date Type Department Care Team (Late Contact Info) Description 12/29/2022 Abstract [facility] Rodriguez [address] [facility] 110 [place] [address] Gorge Lu MD [address] [facility] 110 [place], [place] [id number] Social History Tobacco Use Types Packs/Day Years [...] Upcoming Encounters Date Type Department Care Team ([facility] Contact Info) Description 02/17/2025 2:30 PM EDT Office Visit BEBETO Rodriguez [address] [facility] 110 [place] [address] Gorge Lu MD [address] [facility] [address] [place], [place] [address] 05/05/2025 3:15 PM EST Procedure Visit [facility] [address] [place] [phone] Shemar Saucedo, DPM [address] [place] [address] documented as of this encounter Visit Diagnoses Not on filedocumented in this encounter Care Teams Housing Court Judge Relationship Specialty Start Date End Date Gorge Lu MD [address] [place] [address] [place] [address] PCP - General Internal Medicine 12/14/22 Gorge Lu MD [address] [place] [address] [place] [address] PCP - ACO Reach 11/07/22 07/27/23 Gorge Lu MD [address] [place] [address] [place] [address] PCP - ACO Reach 09/27/23 07/04/24 Gorge Lu MD [address] [place] [address] [place] [address] PCP - ACO Reach 07/12/24 08/29/24 Marcella Harrington, RN [address] [facility] 230 [place] [address] Registered Nurse Family Medicine 08/23/23 documented as of this encounter
--- OUTSIDE RECORDS SUMMARY | 2025-01-28 14:46 | XMS_ITS | Clinical Summary ---
Author Organization [facility] Address [id number] [address] [place] [address] Care Team Providers Care Fashion Patternmaker Name Role Phone Gorge Lu MD Primary Care Provider [phone] Allergies No known active allergies Medications aspirin 81 mg Take 1 tablet (81 mg total) by mouth in the morning. Active calcium acetate (PHOSLO) 667 mg capsule Take 2 capsules (1,334 mg total) by mouth in the morning and 2 capsules (1,334 mg total) before bedtime. Active latanoprost (XALATAN) 0.005 % ophthalmic solution Administer 1 drop to both eyes nightly. Active FLUoxetine (PROzac) 20 mg capsule Take 1 capsule (20 mg total) by mouth in the morning. Active glipiZIDE (GLUCOTROL) 5 mg tablet Take 1 tablet (5 mg total) by mouth in the morning and 1 tablet (5 mg total) in the evening. Take before meals. TAKE TWO TABS TO EQUAL 10MG TWICE A DAY. TAKE 10MG TWICE A DAY. Active ferrous sulfate 325 (65 FE) mg tablet Take 1 tablet (325 mg total) by mouth in the morning and 1 tablet (325 mg total) in the evening. Take with meals. 60 tablet 2 4 Active FARXIGA 5 mg tablet Take 1 tablet (5 mg total) by mouth in the morning. 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 05/29/2023 Atrophy of muscle of multiple sites 03/29/2023 Moderate protein-calorie malnutrition 03/29/2023 Muscle weakness 03/29/2023 Chronic systolic congestive heart failure 2022 Decreased estrogen level 12/13/2022 Essential hypertension 12/13/2022 Frailty 12/13/2022 Irregular heart rhythm 12/13/2022 Left atrial enlargement 12/13/2022 Nonrheumatic mitral valve regurgitation 12/14/19 23 Osteoporosis 12/13/2022 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/2022 Stage 3 chronic kidney disease 12/13/2022 Resolved Problems Problem Noted Date Diagnosed Date Resolved Date Acute hypoxic respiratory failure 10/27/2023 07/04/2024 Pneumonia of both lungs due to infectious organism, unspecified part of lung 10/06/202307/04 Community acquired pneumonia 08/16/2023 07/04/2024 Chronic diastolic (congestive) heart failure 07/04/2024 Nonrheumatic mitral (valve) insufficiency 05/29/2023 10/22/2024 Pressure ulcer of coccygeal region, stage II 3 10/09/2024 Type 2 diabetes mellitus wit hout complications 12/13/2022 07/04/2024 Encounters Date Type Department Care Team Description 01/03/2025 2:40 PM EDT Office Visit [facility] [address] [place] [phone] Francoise Lemus APRN-SHAW 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) 01/03/2025 Travel 11/22/2024 2:40 PM EDT Office Visit [facility] [address] [place] [address] Francoise Lemus APRN-SHAW 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); Stage II pressure ulcer of right buttock (CMS-HCC); Pressure injury of right heel, stage 2 (CMS-HCC) 11/22/2024 Travel from Last 3 Months Family History Medical History Relation Name Comments Diabetes Daughter Diabetes Son Relation Name Status Comments Daughter Son Social History Tobacco Use Types Packs/Day Years Used Date Smoking Tobacco: Never Smokeless Tobacco: Never Alcohol Use Standard Drinks/Week Comments Never 0 (1 standard drink = 0.6 oz pur e alcohol) [facility] Utilities Answer Date Recorded In the past 12 months has th e electric, gas, oil, or water company threatened to shut off services in your home? No 10/27/2023 [employer]UD[employer]-C Answer Date Recorded Frequency of Alcohol Consumption Never 03/29/2019 Average Number of Drinks Not on file 019 Frequency of Binge Drinking Not on file 05/2018 PRAPARE - Transportation Answer Date Re corded In the past 12 months, has l ack of transportation kept you from medical appointments or from getting medications? No 09/28 In the past 12 months, has l ack of transportation kept you from meetings, work, or from getting things needed for daily living? No 10/27/2023 Housing Instability Answer Date Recorde d Are you worried or concerned that in the next two months you may not have stable housing that you own, rent or stay in as a part of a household? No 10/27/2023 Childcare Answer Date Recorded Childcare Unknown 11/07/2018 Employment Answer Date Recorded Employment Unknown 11/07/2018 Hunger Screening Answer Date Recorded Within the past 12 months we worried whether our food would run out before we got money to buy more. Never True 07/04/2024 Within the past 12 months th e food we bought just didn't last and we didn't have money to get more. Never True 07/04/2024 Purpose - Life Answer Date Recorded Purpose and direction in life Unknown Comments No Sex and Gender Information Value Date Recorded Sex Assigned at Not on file Legal Sex Female 12:11 PM EDT Gender Identity Not on file Sexual Orientation Not on file Last Filed Vital Signs Vital Sign Reading Time Taken Comments Blood Pressure 154/87 01/03/2025 2:50 PM EDT Pulse 90 01/03/2025 2:50 PM EDT Temperature 36.5 C (97.7 F) 01/03/2025 2:50 PM EDT Respiratory Rate 16 01/03/2025 2:50 PM EDT Oxygen Saturation 97% 10/22/2024 2:48 PM EDT Inhaled Oxygen Concentration - - Weight 52.2 kg (115 lb) 10/22/2024 2:48 PM EDT Height 162.6 cm (5' 4 ) 10/22/2024 2:48 PM EDT Body Mass Index 19.74 10/22/2024 2:48 PM EDT Plan of Treatment Upcoming Encounters Date Type Department Care Team (Late st Contact Info) Description 05/12/2025 1:30 PM EST Office Visit [facility] [address] [place] [address] [place] [address] Kierra Sequeira, PASrinivasaC [address] [place] [address] Health Maintenance Due Date Last Done Comments Depression Screening 1948 Fall Risk Screening 2001 Zoster (Shingles) Vaccine (2 of 2) 12/04/2024 10/09/2024 Influenza Vaccine 01/27/2025 03/04/2024, , 02/28/2022, Additional history exists Tobacco Screening 01/03/2026 01/03/2025 DTaP,Tdap and Td Vaccines (2 - Td or Tdap) 10/09/2034 10/09/2024 Goals Goal Patient Goal Type Associated Problems Recent Progress Patient-Stated? Author home with daughter and resume [facility] caring. General Yes Nidia Brown, RN Note: Evaluation of progress towards goal: home and lives with daughter and will resume [employer] [facility] Medical Devices Implanted Type Area Refrigerator Crater Device Identifier Shelf Expiration Date Model / Serial / Lot Lens Iol Ultrasert 22.5d - [id number] - [id number] Implanted:Qty: 1 on 04/16/2019 by aKrma Alcaraz MD at [facility] Lens Right: Eye [employer] 07/26/2021 [id number] 22.5 / [id number] / NA Lens Iol Ultrasert 21.5d - [id number] - [id number] Implanted:Qty: 1 on 05/02/2019 by Karma Alcaraz MD at [facility] Lens Left: Eye [employer] 07/26/2021 [id number] 21.5 / [id number] / NA Procedures Procedure Name Priority Date/Time Associated Diagnosis Comments NURSING COMMUNICATION Routine 11/22/2024 3:24 PM EDT Pressure injury of right heel, stage 2 (CMS-HCC) WOUND CALLUS Routine 11/22/2024 2:40 PM EDT 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) from Last 3 Months Results * Medi-honey (11/22/2024 3:24 PM EDT) Narrative MANUALLY TRANSCRIBED RESULTS - 11/22/2024 3:24 PM EDT Applied in clinic today us Francoise DO NURSING COMMUNICATION Fin al Result Performing Organization Address [facility] Co de Phone Number MANUALLY TRANSCRIBED RESULTS * Wound Callus (11/22/2024 2:40 PM EDT) Narrative MANUALLY TRANSCRIBED RESULTS - 11/22/2024 2:40 PM EDT HI Frank 11/22/2024 3:27 PM Wound Callus Performed by: HI Frank Authorized by: HI Frank Associated wounds: Wound 06/26/24 3 Pressure Injury Heel Right Medial Consent: Consent obtained: Verbal and written Consent given by: Patient Risks discussed: Yes Callus Details: Performed by: MAINTENANCE TEAM LEADER Tissue, Devitalized tissue and other material debrided: Callus Anesthesia administration: topical Anesthesia: EMLA Instrument: Adson Amount of bleeding: Small Bleeding Control: Pressure Response to treatment: Procedure was tolerated well us Francoise DO PROCEDURE/MINOR SURGICAL ORDERABLES Final Result Performing Organization Address [facility] Co de Phone Number MANUALLY TRANSCRIBED RESULTS from Last 3 Months Insurance MEDICAID [place] [employer] MEDICARE Advance Directives * Full Code (Latest Code Status on File) Date Activated Date Inactivated Comments 10/27/2023 8:00 AM 10/29/2023 4:40 PM * Full Code Date Activated Date Inactivated Comments 10/06/2023 1:59 AM 10/08/2023 1:33 PM * Full Code Date Activated Date Inactivated Comments 08/16/2023 10:36 PM 08/18/2023 1:37 PM Care Teams Fashion Patternmaker Relationship Specialty Start Date End Date Gorge Lu MD [address] [address] PCP - General Internal Medicine 08/16/23
--- OUTSIDE RECORDS SUMMARY | 2025-01-28 14:46 | XMS_ITS | Encounter Summary ---
Author Organization [facility] Address [address] [facility] [place] [address] Care Team Providers Care Litigation Attorney Name Role Phone Gorge Lu MD Primary Care Provider [phone] Marcella Harrington RN Unavailable [phone] Gorge Lu MD Unavailable [phone] Gorge Lu MD Unavailable [phone] Encounter Details Date Type Department Care Team ([facility] st Contact Info) Description 04/23/2024 Abstract [facility] 112 [facility] 110 [place] [address] Gorge Lu MD 112 [facility] 110 [place] [address] Social History Tobacco Use Types Packs/Day Years [...] often do you attend chur ch or amish services? Never 08/23/2023 Do you belong to any clubs o r organizations such as quaker groups, unions, fraternal or athletic groups, or [...] Recorded Patient Health Questionnaire-2 Score 0 01/09/2023 [facility] - Occupational Stress Questionnaire [...] in a assisted (including now)? No 08/23/2023 Comments Unknown Sex [...] [address] [facility] [address] [place] [address] Gorge Lu MD [address] [facility] [address] [place] [address] 05/05/2025 3:15 PM EST Procedure Visit [facility] [address] [place] [address] Shemar Saucedo DPM [address] [place] [address] documented as of this encounter Visit Diagnoses Not on filedocumented in this encounter Additional Health Concerns Assessment Noted Time A fall risk assessment has been complete d for the patient 08/23/2023 10:31 AM EDT documented as of this encounter Care Teams Litigation Attorney Relationship Specialty Start Date End Date Gorge Lu MD [address] [facility] [address] [place] [address] PCP - General Internal Medicine 12/14/22 Gorge Lu MD [address] [place] [address] [place] [address] PCP - ACO Reach 09/27/23 07/04/24 Gorge Lu MD [address] [place] [address] [place] [address] PCP - ACO Reach 07/12/24 08/29/24 Marcella Harrington, RN [address] [facility] [address] [place] [address] Registered Nurse Family Medicine 08/23/23 documented as of this encounter
--- OUTSIDE RECORDS SUMMARY | 2025-01-28 14:46 | XMS_ITS | Encounter Summary ---
Author Organization [facility] Address [address] [facility] [address] Care Team Providers Care Junior Qa Analyst Name Role Phone Gorge Lu MD Primary Care Provider [phone] Marcella Harrington RN Unavailable [phone] Gorge Lu MD Unavailable [phone] Gorge Lu MD Unavailable [phone] Encounter Details Date Type Department Care Team ([facility] st Contact Info) Description 12/21/2023 Abstract [facility] [place] [facility] 112 [facility] 110 [place] [phone] Gorge Lu MD 112 [facility] 110 [place] [address] Social History Tobacco Use Types Packs/Day Years [...] often do you attend chur ch or methodist services? Never 08/23/2023 Do you belong to any clubs o r organizations such as moravian groups, unions, fraternal or athletic groups, or [...] Patient Health Questionnaire-2 Score 0 01/09/2023 [facility] - Occupational Stress Questionnaire Answer [...] Office Visit BEBETO Rodriguez [address] [facility] [address] [place] [address] Gorge Lu MD [address] [facility] [address] [place] [address] 05/05/2025 3:15 PM EST Procedure Visit [facility] [address] [place] [address] Shemar Saucedo DPM [address] [place] [address] documented as of this encounter Visit Diagnoses Not on filedocumented in this encounter Additional Health Concerns Assessment Noted Time A fall risk assessment has been complete d for the patient 08/23/2023 10:31 AM EDT documented as of this encounter Care Teams Junior Qa Analyst Relationship Specialty Start Date End Date Gorge Lu MD [address] [facility] [address] [place] [address] PCP - General Internal Medicine 12/14/22 Gorge Lu MD [address] [place] [address] [place] [address] PCP - ACO Reach 09/27/23 07/04/24 Gorge Lu MD [address] [place] [address] [place] [address] PCP - ACO Reach 07/12/24 08/29/24 Marcella Harrington, RN [address] [facility] [address] [place] [address] Registered Nurse Family Medicine 08/23/23 documented as of this encounter
--- OUTSIDE RECORDS SUMMARY | 2025-01-28 14:46 | XMS_ITS | Encounter Summary ---
Author Organization [facility] Address [address] [facility] [place] [address] Care Team Providers Care Hazmat Technician Name Role Phone Gorge Lu MD Primary Care Provider [phone] Marcella Harrington RN Unavailable [phone] Gorge Lu MD Unavailable [phone] Gorge Lu MD Unavailable [phone] Encounter Details Date Type Department Care Team ([facility] st Contact Info) Description 09/27/2023 Abstract [facility] [place] [facility] [address] [facility] 110 [place] [address] Gorge Lu MD 112 [facility] 110 [place] [address] Social History Tobacco Use Types Packs/Day Years [...] often do you attend chur ch or faith services? Never 08/23/2023 Do you belong to any clubs o r organizations such as jew groups, unions, fraternal or athletic groups, or [...] Recorded Patient Health Questionnaire-2 Score 0 01/09/2023 [facility] - Occupational Stress Questionnaire Answer Date [...] place to sleep or slept in a mcfp (including now)? No 08/23/2023 Comments Unknown Sex [...] Office Visit BEBETO Rodriguez [address] [facility] [address] [place] [address] Gorge Lu MD [address] [facility] [address] [place] [address] 05/05/2025 3:15 PM EST Procedure Visit [facility] [address] [place] [phone] Shemar Saucedo DPM [address] [place] [address] documented as of this encounter Visit Diagnoses Not on filedocumented in this encounter Additional Health Concerns Assessment Noted Time A fall risk assessment has been complete d for the patient 08/23/2023 10:31 AM EDT documented as of this encounter Care Teams Hazmat Technician Relationship Specialty Start Date End Date Gorge Lu MD [address] [facility] [address] [place] [address] PCP - General Internal Medicine 12/14/22 Gorge Lu MD [address] [place] [address] [place] [address] PCP - ACO Reach 09/27/23 07/04/24 Gorge Lu MD [address] [place] [address] [place] [address] PCP - ACO Reach 07/12/24 08/29/24 Marcella Harrington, RN [address] [facility] 230 [place] [address] Registered Nurse Family Medicine 08/23/23 documented as of this encounter
--- OUTSIDE RECORDS SUMMARY | 2025-01-28 14:46 | XMS_ITS | Encounter Summary ---
Author Organization [facility] Address [address] [facility] [place] [address] Care Team Providers Care Attendant Sales Name Role Phone Gorge Lu MD Primary Care Provider [phone] Gorge Lu MD Unavailable [phone] Marcella Harrington RN Unavailable [phone] Gorge Lu MD Unavailable [phone] Gorge Lu MD Unavailable [phone] Encounter Details Date Type Department Care Team ([facility] Contact Info) Description 03/03/2023 Abstract [facility] [place] [facility] 112 [facility] 110 [place] [address] Gorge Lu MD 112 [facility] 110 [place], [place] [phone] Social History Tobacco Use Types Packs/Day Years [...] Upcoming Encounters Date Type Department Care Team ([facility] Contact Info) Description 02/17/2025 2:30 PM EDT Office Visit [facility] [place] [facility] [address] [facility] 110 [place] [address] Gorge Lu MD [address] [facility] [address] [place], [place] [address] 05/05/2025 3:15 PM EST Procedure Visit [facility] [address] [place] [address] Shemar Saucedo, DPM [address] [place] [address] documented as of this encounter Visit Diagnoses Not on filedocumented in this encounter Care Teams Attendant Sales Relationship Specialty Start Date End Date Gorge Lu MD [address] [facility] [address] [place] [address] PCP - General Internal Medicine 12/14/22 Gorge Lu MD [address] [facility] [address] [place] [address] PCP - ACO Reach 11/07/22 07/27/23 Gorge Lu MD [address] [facility] [address] [place] [address] PCP - ACO Reach 09/27/23 07/04/24 Gorge Lu MD [address] [place] [address] [place] [address] PCP - ACO Reach 07/12/24 08/29/24 Marcella Harrington, ALEXEY [address] [facility] [address] [place] [address] Registered Nurse Family Medicine 08/23/23 documented as of this encounter
--- OUTSIDE RECORDS SUMMARY | 2025-01-28 14:46 | XMS_ITS | Encounter Summary ---
Author Organization [facility] Address [address] [facility] [address] Care Team Providers Care Sea Foam Kiss Maker Name Role Phone Gorge Lu MD Primary Care Provider [phone] Marcella Harrington RN Unavailable [phone] Gorge Lu MD Unavailable [phone] Gorge Lu MD Unavailable [phone] Encounter Details Date Type Department Care Team ([facility] st Contact Info) Description 10/31/2023 Abstract [facility] [place] [facility] [address] [facility] [address] [place] [id number] Gorge Lu MD 112 [facility] 110 [place] [address] Social History Tobacco Use Types Packs/Day Years [...] often do you attend chur ch or advent services? Never 08/23/2023 Do you belong to any clubs o r organizations such as mu-ism groups, unions, fraternal or athletic groups, or [...] Patient Health Questionnaire-2 Score 0 01/09/2023 [facility] - Occupational Stress Questionnaire Answer Date [...] [address] [facility] [address] [place] [address] Gorge Lu MD [address] [facility] [address] [place] [address] 05/05/2025 3:15 PM EST Procedure [facility] [address] [place] [phone] Shemar Saucedo DPM [address] [place] [address] documented as of this encounter Visit Diagnoses Not on filedocumented in this encounter Additional Health Concerns Assessment Noted Time A fall risk assessment has been complete d for the patient 08/23/2023 10:31 AM EDT documented as of this encounter Care Teams Sea Foam Kiss Maker Relationship Specialty Start Date End Date Gorge Lu MD [address] [facility] [address] [place] [address] PCP - General Internal Medicine 12/14/22 Gorge Lu MD [address] [place] [address] [place] [address] PCP - ACO Reach 09/27/23 07/04/24 Gorge Lu MD [address] [place] [address] [place] [address] PCP - ACO Reach 07/12/24 08/29/24 Marcella Harrington, RN [address] [address] [place] [address] Registered Nurse Family Medicine 08/23/23 documented as of this encounter
--- OUTSIDE RECORDS SUMMARY | 2025-01-28 14:46 | XMS_ITS | Encounter Summary ---
Author Organization [facility] Address [address] [place] [address] Care Team Providers Care Waterworks Pump Station Operator Name Role Phone Gorge Lu MD Primary Care Provider [phone] Marcella Harrington RN Unavailable [phone] Gorge Lu MD Unavailable [phone] Gorge Lu MD Unavailable [phone] Encounter Details Date Type Department Care Team ([facility] st Contact Info) Description 09/12/2023 Abstract [facility] [place] [facility] [address] [facility] [address] [place] [phone] Gorge Lu MD 112 [facility] 110 [place] [address] Social History Tobacco Use Types Packs/Day Years [...] often do you attend chur ch or confucianism services? Never 08/23/2023 Do you belong to any clubs o r organizations such as amish groups, unions, fraternal or athletic groups, or [...] 0 01/09/2023 [facility] - Occupational Stress Questionnaire Answer Date [...] Office Visit BEBETO Rodriguez [address] [facility] [address] [place] [address] Gorge Lu MD [address] [facility] [address] [place] [address] 05/05/2025 3:15 PM EST Procedure [facility] [address] [place] [phone] Shemar Saucedo DPM [address] [place] [address] documented as of this encounter Visit Diagnoses Not on filedocumented in this encounter Additional Health Concerns Assessment Noted Time A fall risk assessment has been complete d for the patient 08/23/2023 10:31 AM EDT documented as of this encounter Care Teams Waterworks Pump Station Operator Relationship Specialty Start Date End Date Gorge Lu MD [address] [facility] [address] [place] [address] PCP - General Internal Medicine 12/14/22 Gorge Lu MD [address] [place] [address] [place] [address] PCP - ACO Reach 09/27/23 07/04/24 Gorge Lu MD [address] [place] [address] [place] [address] PCP - ACO Reach 07/12/24 08/29/24 Marcella Harrintgon, RN [address] [facility] [address] [place] [address] Registered Nurse Family Medicine 08/23/23 documented as of this encounter
== END 2025-01-28 14:43 | disposition home or self-care (01) ==
LOC: RAD 14:43
PROVIDERS: PCP Internal Medicine; Visit Provider Internal Medicine
DX: E28.39 Other primary ovarian failure (principal); M81.0 Age-related osteoporosis without current pathological fracture; M85.88 Other specified disorders of bone density and structure, other site
CPT/HCPCS: 77080